=== PATIENT | female | born 1995 | race American Indian/Alaskan Native ===

== ENCOUNTER 2017-01-21 08:39 | Emergency (ER) | payer SELFPAY ==
[2017-01-21 09:52] VITALS: BP 100/67
--- NOTE | 2017-01-21 11:02 | Emergency Department Report ---
ED General Adult HPI - General Chief complaint: Laceration/Recheck/Suture Stated complaint: ER FOLLOW UP/CYST Time Seen by Provider: 01/21/17 10:20 Source: patient Mode of arrival: Ambulatory Limitations: No Limitations - History of Present Illness Initial comments: PT states she is here for packing removal. PT states she is feeling a lot better. PT states that she tried to follow up with surgeon but they did not take her [place] insurance and she said the cost would be almost $3,000. PT states she plan to go back down to [place] to see a surgeon. MD Complaint: packing removal -: Gradual Location: buttocks Consistency: now resolved Improves with: other (drainage, antibiotics, and warm soaks ) Associated Symptoms: denies: fever/chills, nausea/vomiting Treatments Prior to Arrival: heat therapy - Related Data Previous Rx's Medication Instructions Recorded Last Taken Type Acetaminophen/Codeine [Tylenol #3] 1 tab PO Q6H PRN #12 tab 01/17/17 Unknown Rx Sulfamethoxazole/Trimethoprim 1 each PO BID #20 tablet 01/17/17 Unknown Rx [Bactrim DS TAB] Allergies Allergy/AdvReac Type Severity Reaction Status Date / Time No Known Allergies Allergy Unverified 01/21/17 09:52 ED Review of Systems ROS: Stated complaint: ER FOLLOW UP/CYST Other details as noted in HPI Comment: All other systems reviewed and negative Constitutional: denies: chills, fever Gastrointestinal: denies: nausea, vomiting ED Past Medical Hx - Past Medical History Previous Medical History?: Yes Hx Asthma: Yes - Surgical History Past Surgical History?: No - Social History Smoking Status: Never Smoker Substance Use Type: None - Medications Home Medications: Home Medications Medication Instructions Recorded Confirmed Last Taken Type Acetaminophen/Codeine [Tylenol #3] 1 tab PO Q6H PRN #12 tab 01/17/17 Unknown Rx Sulfamethoxazole/Trimethoprim 1 each PO BID #20 tablet 01/17/17 Unknown Rx [Bactrim DS TAB] ED Physical Exam - General Limitations: No Limitations General appearance: alert, in no apparent distress - Head Head exam: Present: atraumatic, normocephalic - Eye Eye exam: Present: normal appearance. Absent: conjunctival injection - ENT ENT exam: Present: normal exam - Neck Neck exam: Present: normal inspection, full ROM - Respiratory Respiratory exam: Absent: respiratory distress, accessory muscle use - GI/Abdominal GI/Abdominal exam: Present: soft. Absent: tenderness - Extremities Exam Extremities exam: Present: normal inspection, full ROM - Back Exam Back exam: Present: normal inspection, other (packing in place at gluteal cleft. ). Absent: tenderness - Neurological Exam Neurological exam: Present: alert, oriented X3 - Psychiatric Psychiatric exam: Present: normal affect, normal mood - Skin Skin exam: Present: warm, dry ED Course Vital Signs 01/21/17 09:49 Temperature 97 F L Pulse Rate 89 Respiratory 16 Rate Blood Pressure 100/67 O2 Sat by Pulse 97 Oximetry - Reevaluation(s) Reevaluation #1: 01/21/17 10:28 Pt's packing was removed. No drainage noted. No tenderness surrounding site. - Pulse Oximetry Interpretation Digit-Finger Initial Pulse Oximetry Readin Actions Taken: none ED Medical Decision Making - Differential Diagnosis packing removal Critical care attestation.: If time is entered above; I have spent that time in minutes in the direct care of this critically ill patient, excluding procedure time. ED Disposition Clinical Impression: Pilonidal abscess, Abscess packing removal Disposition: DISCHARGED TO HOME OR SELFCARE Is pt being admited?: No Does the pt Need Aspirin: No Condition: Stable Instructions: Abscess (ED) Additional Instructions: follow up with Surgeon in [place] continue warm compresses Refrain from smoking Referrals: PRIMARY CARE, [Primary Care Provider] - 3-5 Days Time of Disposition: 10:29
== END 2017-01-21 10:41 | disposition home or self-care (01) ==
LOC: ED 08:39
DX: Z48.02 Encounter for removal of sutures (principal); L05.01 Pilonidal cyst with abscess; J45.909 Unspecified asthma, uncomplicated

== ENCOUNTER 2017-03-18 21:08 | Emergency (ER) | payer SELFPAY ==
[2017-03-18] MEDS ORDERED: TYLENOL PO ONE ×2 (21:45→23:08)
[2017-03-18 22:25] LABS: Basophils % (Auto) 0.2 % (0.0-1.8); Hematocrit 38.1 % (30.3-42.9); Hemoglobin 12.3 gm/dl (10.1-14.3); Mean Corpuscular HGB Conc 32 % (30-34); Mean Corpuscular Hemoglobin 27 pg (28-32); Mean Corpuscular Volume 85 fl (79-97); Platelet Count 194 K/mm3 (140-440); Red Blood Count 4.49 M/mm3 (3.65-5.03); Red Cell Distribution Width 12.5 % (13.2-15.2); White Blood Count 15.8 K/mm3 (4.5-11.0)
[2017-03-18 22:33] LABS: Anion Gap 20 mmol/L; BUN/Creatinine Ratio 6.25; Blood Urea Nitrogen 5 mg/dL (7-17); Calcium 8.7 mg/dL (8.4-10.2); Carbon Dioxide 22 mmol/L (22-30); Chloride 92.2 mmol/L (98-107); Glucose 90 mg/dL (65-100); Sodium 131 mmol/L (137-145)
[2017-03-18 22:34] LABS: Potassium 2.9 mmol/L (3.6-5.0)
[2017-03-18] MEDS ORDERED: K-DUR PO ONE (22:49)
[2017-03-18] MEDS ORDERED: NACL 0.9% 1000 ML 1,000 ML IV ONE (23:08)
[2017-03-18] MEDS ORDERED: ROCEPHIN/NS 1 GM/50 ML 1 GM/50 ML BAG IV ONE (23:08)
--- NOTE | 2017-03-18 23:38 | Emergency Department Report ---
HPI - General Chief Complaint: Sore Throat Time Seen by Provider: 03/18/17 22:48 - HPI HPI: This is a 21-year-old Afro[place] female who presents to the emergency department from home with a complaint of a 3 day history of bilateral ear pain, sore throat, pain with swallowing. Patient presents with fever but denies feeling as if she had a fever at home. She tried drinking some tea for discomfort without any relief. Otherwise she did not take any medications. She denies any past medical history. His not having a primary care doctor. No recent travel or sick contacts at home. Patient also complains of some very mild lower abdominal and pelvic discomfort that started around the same time. She denies any vaginal bleeding or discharge, dysuria. ED Past Medical Hx - Past Medical History Previous Medical History?: Yes Hx Asthma: Yes - Surgical History Past Surgical History?: No - Social History Smoking Status: Never Smoker Substance Use Type: None - Medications Home Medications: Home Medications Medication Instructions Recorded Confirmed Last Taken Type Amoxicillin [Trimox CAP] 500 mg PO Q8H #30 capsule 03/19/17 Unknown Rx ED Review of Systems ROS: Stated complaint: STREP THRAOT Other details as noted in HPI Constitutional: denies: malaise, weakness Eyes: denies: eye pain, eye discharge, vision change ENT: ear pain, throat pain Respiratory: denies: cough, shortness of breath, wheezing Cardiovascular: denies: chest pain, palpitations Gastrointestinal: abdominal pain. denies: diarrhea Genitourinary: denies: urgency, dysuria, discharge Musculoskeletal: denies: back pain, joint swelling, arthralgia Skin: denies: rash, lesions Neurological: denies: headache, weakness, paresthesias Physical Exam - Physical Exam Vital Signs: Vital Signs 03/18/17 03/18/17 03/18/17 21:34 22:40 22:46 Temperature 102.2 F H Pulse Rate 133 H 119 H Respiratory 20 20 Rate Blood Pressure 107/74 101/60 Blood Pressure [Right] O2 Sat by Pulse 100 98 98 Oximetry 03/18/17 03/18/17 03/18/17 22:48 23:00 23:16 Temperature 100.5 F H Pulse Rate 110 H 111 H 107 H Respiratory 20 21 21 Rate Blood Pressure 108/60 108/60 Blood Pressure 101/60 [Right] O2 Sat by Pulse 100 98 97 Oximetry Physical Exam: GENERAL: The patient is well-developed well-nourished. HEENT: Normocephalic. Atraumatic. Extraocular motions are intact. Patient has moist mucous membranes. Pupils equal reactive to light bilaterally. Normal -appearing bilateral external ear canals and tympanic membranes. The oropharynx shows tonsillar hypertrophy bilaterally with bilateral exudates and some mild erythema. There is no drooling or trismus. NECK: Supple. Trachea is midline. CHEST/LUNGS: Clear to auscultation. There is no respiratory distress noted. HEART/CARDIOVASCULAR: Regular. There is mild tachycardia. There is no gallop rub or murmur. ABDOMEN: Abdomen is soft, nontender. Patient has normal bowel sounds. There is no abdominal distention. SKIN: Skin is hot but dry. NEURO: The patient is awake, alert, and oriented. The patient is cooperative. The patient has no focal neurologic deficits. The patient has normal speech. MUSCULOSKELETAL: There is no tenderness or deformity. There is no limitation range of motion. There is no evidence of acute injury. ED Course Vital Signs 03/18/17 03/18/17 03/18/17 21:34 22:40 22:46 Temperature 102.2 F H Pulse Rate 133 H 119 H Respiratory 20 20 Rate Blood Pressure 107/74 101/60 Blood Pressure [Right] O2 Sat by Pulse 100 98 98 Oximetry 03/18/17 03/18/17 03/18/17 22:48 23:00 23:16 Temperature 100.5 F H Pulse Rate 110 H 111 H 107 H Respiratory 20 21 21 Rate Blood Pressure 108/60 108/60 Blood Pressure 101/60 [Right] O2 Sat by Pulse 100 98 97 Oximetry ED Medical Decision Making - Lab Data Result diagrams: 03/18/17 21:53 03/18/17 21:53 - Medical Decision Making 21-year-old presents with 3 day history of bilateral ear pain, throat pain. She presents with a fever with MAXIMUM TEMPERATURE 103 and some mild tachycardia. She was given Tylenol and upon reevaluation her fever has resolved and her tachycardia has also resolved. She was negative on the rapid strep test but the physical appearance of her oropharynx is consistent with a strep pharyngitis with tonsillar hypertrophy and exudates. She was given a dose of Rocephin through the IV. Patient has a leukocytosis of about 15,000. She has hypokalemia of 2.9 replaced potassium chloride. Patient was reevaluated multiple times for multiple hours and has remained stable. She is feeling improved. She was discharged home with amoxicillin and referrals for primary care. She will return to the ER with any worsening of her symptoms or any acute distress. - Differential Diagnosis strep pharyngitis, mono, viral syndrome Critical Care Time: No Critical care attestation.: If time is entered above; I have spent that time in minutes in the direct care of this critically ill patient, excluding procedure time. ED Disposition Clinical Impression: Strep pharyngitis, Otalgia of both ears, Dehydration Fever Qualifiers: Fever type: unspecified Qualified Code(s): R50.9 - Fever, unspecified Disposition: DISCHARGED TO HOME OR SELFCARE Is pt being admited?: No Condition: Stable Instructions: Dehydration (ED), Strep Throat (ED), Fever in Adults (ED) Additional Instructions: Please follow-up with a primary care doctor in the next few days. Return to the emergency department with any worsening of her symptoms or any acute distress. He can take Tylenol every 4 hours and ibuprofen every 6 hours, using weight-based dosing, as needed for fever or discomfort. Prescriptions: Amoxicillin [Trimox CAP] 500 mg PO Q8H #30 capsule Referrals: PRIMARY CAREMD [Primary Care Provider] - 3-5 Days IRAIDA PATIÑO MD [Staff Physician] - 3-5 Days [facility] [Outside] - 3-5 Days Time of Disposition: 01:55
[2017-03-19] MEDS ORDERED: ZOFRAN ONE (00:13)
[2017-03-19] MEDS ORDERED: ZOFRAN IV ONE (00:17)
[2017-03-19 00:47] LABS: Bacteria,Urine 1+ /HPF (Negative); Bilirubin,Urine NEG (Negative); Blood,Urine NEG (Negative); Ketones,Urine 80 mg/dL (Negative); Leukocyte Esterase,Urine TR (Negative); Mucus,Urine 3+ /HPF; Nitrite,Urine NEG (Negative)
[2017-03-19 01:59] VITALS: BP 112/81
== END 2017-03-19 02:05 | disposition home or self-care (01) ==
LOC: ED 21:08
DX: J02.0 Streptococcal pharyngitis (principal); E86.0 Dehydration; H92.03 Otalgia, bilateral; J45.909 Unspecified asthma, uncomplicated
CPT/HCPCS: 36415; 80048; 81001; 81025; 85025; 87116; 87430; 96365; 96375; 99284; J0696; J2405; J2930; J7030